=== PATIENT | female | born 1950 | race Caucasian/White ===

== ENCOUNTER 2025-03-06 19:35 | Inpatient (IN) | payer MEDICARE, OTHER ==
[~2025-03-06] VITALS: Ht 152.4 cm; Wt 77.3 kg
[2025-03-06 20:28] LABS: PLATELET COUNT (AUTO) 248 K/uL (150-450); RED BLOOD CELL COUNT(AUTO) 4.77 MIL/uL (4.0-5.2); RED CELL DISTRIBUTION WIDTH 15.1 % (11.5-15.0); WHITE BLOOD COUNT (AUTO) 14.5 K/uL (4.3-11.0)
[2025-03-06 20:38] LABS: CALCIUM, SERUM 10.2 mg/dL (8.5-10.1); CREATININE 1.4 mg/dL (0.6-1.3); SODIUM SERUM 144 mmol/L (136-145); UREA NITROGEN, BLOOD 19 mg/dL (7-18)
[2025-03-06 20:39] LABS: APPEARANCE,URINE CLOUDY (CLEAR); BLOOD, URINE 2+ Ery/uL (NEGATIVE); LEUKOCYTE ESTERASE ,URINE TRACE (NEGATIVE); NITRITE, URINE POSITIVE (NEGATIVE); UGLUCOSE NEGATIVE (NEGATIVE)
[2025-03-06 20:42] LABS: ADD URINE CULTURE YES; SQUAMOUS EPITHELIAL CELL,UR 0-2 /HPF (None Seen)
[2025-03-06 20:43] LABS: CALCIUM OXALATE CRYSTALS,UR Moderate /HPF (None Seen)
[2025-03-06 20:44] LABS: ASPARTATE AMINOTRANSFERASE 34 U/L (15-37); TOTAL PROTEIN, SERUM 8.1 g/dL (6.4-8.2)
[2025-03-06 20:50] LABS: LYMPHOCYTES % (MANUAL) 8 % (16-48); METAMYELOCYTES % 1 % (0-0); MONOCYTES % (MANUAL) 3 % (0-11.0); NEUTROPHILS % (MANUAL) 88 (42-76); PLATELET ESTIMATE ADEQUATE
[2025-03-06] MEDS ORDERED: PIPERACI/TAZO 3.375GM/D5W 50ML PB IV ONE (21:18)
[2025-03-06] MEDS: IV NS 0.9% 500 ML BAG IV ONE ×2 (21:21→22:07)
[2025-03-06 21:28] LABS: LACTIC ACID 5.2 mmol/L (0.4-2.0)
[2025-03-06] MEDS: PIPERACILLIN /TAZOBACTAM 3.375 G in IV D5W 50 ML IV ONE (21:30)
[2025-03-06] MEDS ORDERED: MAG HYDROX/AL HYDROX/SIMETH 30 ML UDC PO PRN (22:30)
[2025-03-06] MEDS ORDERED: ONDANSETRON HCL/PF 4 MG/2 ML VIAL IVP PRN (22:30)
[2025-03-06] MEDS ORDERED: ACETAMINOPHEN 325 MG TABLET PO PRN (22:30)
[2025-03-06] MEDS ORDERED: DEXTROSE 50%-WATER 50 ML DISP.SYRIN IV PRN (22:30)
[2025-03-06] MEDS ORDERED: DOSING PER PHARMACY-VANCOMYCIN IV XX PRN (22:30)
[2025-03-06] MEDS ORDERED: MAGNESIUM HYDROXIDE 30 ML UDC PO PRN (22:30)
[2025-03-06] MEDS ORDERED: Z GUARD REMEDY 4 OZ OINT TP PRN (22:30)
[2025-03-06] MEDS ORDERED: METF-440 PO (22:35)
[2025-03-06] MEDS ORDERED: SEMA7TAB PO (22:35)
[2025-03-06] MEDS ORDERED: ATOR80TA PO (22:35)
[2025-03-06] MEDS ORDERED: LEVO88TA5 PO (22:35)
[2025-03-06] MEDS ORDERED: EZET10TA15 PO (22:42)
[2025-03-06] MEDS ORDERED: MEMA10TA PO (22:42)
[2025-03-06] MEDS ORDERED: SERT50TA PO (22:42)
[2025-03-06] MEDS ORDERED: ASCO100031 PO (22:42)
[2025-03-06] MEDS ORDERED: OLAN5TAB3 PO (22:42)
[2025-03-06] MEDS ORDERED: MIRT-90 PO (22:42)
[2025-03-06] MEDS ORDERED: MULT-213 PO (22:42)
[2025-03-06] MEDS ORDERED: DONE10TA44 PO (22:42)
[2025-03-06] MEDS: VANCOMYCIN 1 GM /D5W 250 ML PB IV ONE (23:49)
[2025-03-06] MEDS: ENOXAPARIN SODIUM 30 MG/0.3 ML DISP.SYRIN SQ SCH (23:58)
[2025-03-07] VITALS: BP 163/82; TEMP 98.2; O2SAT 93
[2025-03-07] MEDS ORDERED: CEFEPIME 1 GM VIAL ONE
[2025-03-07] MEDS: VANCOMYCIN HCL 1.25 GM in IV D5W 250 ML IV ONE (00:03)
[2025-03-07] MEDS: CEFEPIME 2 GM in IV D5W 100 ML IV ONE (00:07)
[2025-03-07 04:00] VITALS: BP 163/91; TEMP 97.7; O2SAT 95
[2025-03-07] MEDS: INSULIN REGULAR, HUMAN 100 UNIT/ML 3 ML VIAL SQ PRN (06:19)
[2025-03-07 06:45] LABS: PLATELET COUNT (AUTO) 227 K/uL (150-450); RED BLOOD CELL COUNT(AUTO) 4.78 MIL/uL (4.0-5.2); RED CELL DISTRIBUTION WIDTH 14.9 % (11.5-15.0); WHITE BLOOD COUNT (AUTO) 15.4 K/uL (4.3-11.0)
[2025-03-07 06:59] LABS: CALCIUM, SERUM 9.2 mg/dL (8.5-10.1); CREATININE 1.2 mg/dL (0.6-1.3); PHOSPHORUS 3.1 mg/dL (2.5-4.9); SODIUM SERUM 144.0 mmol/L (136-145); UREA NITROGEN, BLOOD 17.0 mg/dL (7-18)
[2025-03-07 07:40] LABS: LACTIC ACID 2.7 mmol/L (0.4-2.0)
[2025-03-07 08:00] VITALS: BP 160/88; TEMP 98.8; O2SAT 92
[2025-03-07] MEDS: LEVOTHYROXINE SODIUM 88 MCG TABLET PO SCH (09:00)
[2025-03-07] MEDS: BLOOD SUGAR DIAGNOSTIC 1 EACH STRIP IN SCH (09:29)
[2025-03-07] MEDS: MULTIVIT W/MINERALS 1 TAB TABLET PO SCH (09:38)
[2025-03-07] MEDS: SERTRALINE HCL 50 MG TABLET PO SCH (09:38)
[2025-03-07] MEDS: ASCORBIC ACID 500 MG TABLET PO SCH (09:38)
[2025-03-07] MEDS: MEMANTINE HCL 5 MG TABLET PO SCH ×2 (09:38→20:47)
[2025-03-07] MEDS: EZETIMIBE 10 MG TABLET PO SCH (09:38)
[2025-03-07] MEDS: ATORVASTATIN 40 MG TABLET PO SCH (09:38)
[2025-03-07] MEDS: VANCOMYCIN 750 MG in IV D5W 250 ML IV ONE (09:39)
[2025-03-07] MEDS: PANTOPRAZOLE 40 MG TABLET.DR PO SCH (09:47)
[2025-03-07] MEDS: CEFEPIME 2 GM in IV D5W 100 ML IV SCH (12:03)
[2025-03-07] MEDS ORDERED: OLANZAPINE 5 MG TABLET PO SCH (18:00)
[2025-03-07] MEDS ORDERED: MIRTAZAPINE 15 MG TABLET PO SCH (18:00)
[2025-03-07] MEDS: OLANZAPINE 5 MG TABLET PO SCH (20:47)
[2025-03-07] MEDS: MIRTAZAPINE 15 MG TABLET PO SCH (20:48)
[2025-03-07] MEDS: DONEPEZIL 5 MG TABLET PO SCH (21:14)
[2025-03-07] MEDS: AMLODIPINE BESYLATE 2.5 MG TABLET PO SCH (21:54)
[2025-03-07 22:00] VITALS: BP 157/88; TEMP 97.9; O2SAT 92
[2025-03-08 05:06] VITALS: BP 100/66; TEMP 98.2; O2SAT 92
[2025-03-08 07:54] LABS: PLATELET COUNT (AUTO) 238 K/uL (150-450); RED BLOOD CELL COUNT(AUTO) 4.82 MIL/uL (4.0-5.2); RED CELL DISTRIBUTION WIDTH 14.5 % (11.5-15.0); WHITE BLOOD COUNT (AUTO) 11.9 K/uL (4.3-11.0)
[2025-03-08] MEDS ORDERED: VANCOMYCIN HCL 1.25 GM in IV D5W 250 ML IV SCH (08:00)
[2025-03-08 08:16] LABS: CALCIUM, SERUM 9.1 mg/dL (8.5-10.1); CREATININE 1.2 mg/dL (0.6-1.3); SODIUM SERUM 143.0 mmol/L (136-145); UREA NITROGEN, BLOOD 16.0 mg/dL (7-18)
[2025-03-08] MEDS: POTASSIUM CHLORIDE 20 MEQ TAB.PRT.SR PO ONE (10:50)
[2025-03-08 13:00] VITALS: BP 160/92; TEMP 98.6; O2SAT 95
[2025-03-08] MEDS: hydrALAZINE HCL IV 20 MG VIAL IV PRN (16:07)
[2025-03-08 20:00] VITALS: BP 135/78; TEMP 99; O2SAT 96
[2025-03-09 04:00] VITALS: BP 149/83; TEMP 99.1; O2SAT 94
[2025-03-09 07:22] LABS: PLATELET COUNT (AUTO) 228 K/uL (150-450); RED BLOOD CELL COUNT(AUTO) 5.05 MIL/uL (4.0-5.2); RED CELL DISTRIBUTION WIDTH 14.3 % (11.5-15.0); WHITE BLOOD COUNT (AUTO) 9.9 K/uL (4.3-11.0)
[2025-03-09 07:49] LABS: CALCIUM, SERUM 9.4 mg/dL (8.5-10.1); CREATININE 0.8 mg/dL (0.6-1.3); SODIUM SERUM 144.0 mmol/L (136-145); UREA NITROGEN, BLOOD 14.0 mg/dL (7-18)
[2025-03-09 08:00] VITALS: BP 158/88; TEMP 98.6; O2SAT 93
[2025-03-09] MEDS ORDERED: NITR100C6 PO (08:50)
[2025-03-09 08:51] LABS: PHOSPHORUS 3.4 mg/dL (2.5-4.9)
[2025-03-09] MEDS: POTASSIUM CHLORIDE 20 MEQ TAB.PRT.SR PO ONE (09:38)
[2025-03-09 16:00] VITALS: BP 105/81; TEMP 98.8; O2SAT 94
== END 2025-03-09 17:59 | DRG 689 ==
LOC: ER 19:38 → TELE1 22:43 → MEDSG1 03-07 09:41
PROVIDERS: ADMIT Registered Nurse Psychiatric/Mental Health; ATTEND Internal Medicine
DX: N39.0 Urinary tract infection, site not specified (principal); G93.41 Metabolic encephalopathy; N17.0 Acute kidney failure with tubular necrosis; E87.20 Acidosis, unspecified; E11.65 Type 2 diabetes mellitus with hyperglycemia; F02.80 Dementia in other diseases classified elsewhere, unspecified severity, without behavioral disturbance, psychotic disturbance, mood disturbance, and anxiety; G30.9 Alzheimer's disease, unspecified; E03.9 Hypothyroidism, unspecified; E78.5 Hyperlipidemia, unspecified; E83.52 Hypercalcemia; E86.0 Dehydration; I10 Essential (primary) hypertension; E86.1 Hypovolemia; Z79.84 Long term (current) use of oral hypoglycemic drugs; Z87.891 Personal history of nicotine dependence; B96.89 Other specified bacterial agents as the cause of diseases classified elsewhere; R53.81 Other malaise; Z20.822 Contact with and (suspected) exposure to COVID-19
CPT/HCPCS: 36415; 71045-TC; 80048-TC; 80076-TC; 80202-TC; 81001; 82962-TC; 83605-TC; 83735-TC; 84100-TC; 84484-TC; 85025-TC; 85027-TC; 87040-TC; 97110-TC; 97116-TC; 97530-TC; 97535-TC; A4223; G0378; J0360; J0692; J1650; J1815; J2543; J3373; J3374; J7030; J7040; J7050; J7060